=== PATIENT | female | born 1950 | race Caucasian/White ===

== ENCOUNTER 2018-05-10 09:33 | Outpatient (CLI) | payer MEDICARE, BC ==
--- NOTE | 2018-05-10 10:41 | ULT ---
RENAL SONOGRAM: HISTORY: Chronic renal insufficiency. COMPARISON: None. FINDINGS: The right kidney is 8.1 cm. Exophytic cyst projecting from the superior pole is 8.9 cm in greatest d iameter. No solid mass or hydronephrosis. The urinary bladder is unremarkable. The left kidney is 9.7 cm. There is mild distention of the calyces and renal pelvis. IMPRESSION: 1. Mild left pelvocaliectasis. Clinical correlation regarding other signs and symptoms of left elmer l colic is required. Age indeterminate. 2. Large right renal cyst. POS: BST
== END 2018-05-10 09:34 | disposition home or self-care (01) ==
LOC: ULT 09:33
PROVIDERS: ATTEND Internal Medicine Nephrology
DX: N18.3 Chronic kidney disease, stage 3 (moderate) (principal); N28.1 Cyst of kidney, acquired; N28.89 Other specified disorders of kidney and ureter
CPT/HCPCS: 76770

== ENCOUNTER 2018-10-12 09:58 | Emergency (ER) | payer MEDICARE, BC ==
[2018-10-12] MEDS ORDERED: Ondansetron PF 4 MG/2 ML Vial ONE (10:20)
[2018-10-12] MEDS ORDERED: Morphine 4 MG/ML VIAL ONE (10:20)
[2018-10-12 10:53] LABS: ALT (SGPT) 8 U/L (8-55); AST (SGOT) 14 U/L (5-34); Albumin 3.7 g/dL (3.4-4.8); Alkaline Phosphatase 95 U/L (40-150); Anion Gap 16 mmol/L (10-20); BUN (Urea Nitrogen) 32 mg/dL (9.8-20.1); Bilirubin, Total 0.3 mg/dL (0.2-1.2); Calc. Creatinine Clearance 0 mL/min (70-130); Calcium 9.4 mg/dL (7.8-10.44); Carbon Dioxide 23 mmol/L (23-31); Chloride 103 mmol/L (98-107); Estimated GFR-MDRD 29; Globulin 2.7 g/dL (2.4-3.5); Glucose 119 mg/dL (80-115); Lipase 8 U/L (8-78); Potassium 4.3 mmol/L (3.5-5.1); Protein, Total 6.4 g/dL (6.0-8.3); Sodium 138 mmol/L (136-145)
[2018-10-12 11:07] LABS: Band 2 % (5-11); Hemoglobin 9.4 g/dL (12.0-16.0); Lymphocytes 14 % (21-51); MDiff Complete? YES; Macrocytosis SLIGHT = 6-15 cells (100X) (0-5/hpf); Mean Corpuscular HGB CONC 31.8 g/dL (32.0-36.0); Mean Corpuscular Hemoglobin 31.1 pg (27.0-31.0); Mean Corpuscular Volume 97.8 fL (78.0-98.0); Mean Platelet Volume 7.1 fL (7.4-10.4); Monocytes 16 % (0-10); Neutrophil 67 % (42-75); PLT Morphology Comment Appears Adequate; Platelet Count 304 thou/uL (130-400); RBC Distribution Width 13.4 % (11.5-14.5); Reactive Lymphocytes 1 % (0-10); Red Blood Cell (RBC) Count 3.04 mill/uL (4.20-5.40); White Blood Cell (WBC) Count 4.2 thou/uL (4.8-10.8)
[2018-10-12 11:56] LABS: Bilirubin Negative (Negative); Blood, Urine Large (Negative); Clarity Slightly Cloudy (Clear); Glucose, Urine (Dipstick) Negative (Negative); Leukocyte Large (Negative); Nitrite Negative (Negative); Protein, Urine (Dipstick) > or equal to 300 mg/dL (Neg-Trace); Urobilinogen 0.2 mg/dL (0.2-1.0); pH, Urine 6.5 (5.0-9.0)
[2018-10-12 12:00] LABS: Bacteria/HPF 4+ HPF (None Seen); RBC/HPF GREATER THAN 50-TNTC HPF (0-3); Squamous Epithelial 0-3 HPF (0-3)
--- NOTE | 2018-10-12 12:28 | CT ---
CT OF THE ABDOMEN AND PELVIS WITHOUT IV CONTRAST: INDICATION: History of ovarian cancer with bilateral renal collecting system obstruction status post ureteral tariq nt placement in June of 2018. The stents were replaced 1 week ago. The patient was reportedly doi ng well following the replacement of the stents with moderate discomfort until last night when the pa tient awoke with sudden increase in pain in the right flank. The patient has had nausea and vomiting for 10 episodes. The patient denies fever, urinary symptoms, diarrhea, or any other complaints. COMPARISON: Renal ultrasound dated 05/10/2018. No CT comparisons are available. FINDINGS: There are large hypodense lesions involving the liver suspicious for cysts. There is a lesion in the left hepatic lobe laterally measuring 2.7 cm on image 15 of series 2. The lesion within the medial left hepatic lobe on image 18 of series 2 measures 6.1 cm. The largest within segment 6 of the right hepatic lobe is seen measuring 9.5 x 8.0 cm on image 29 of series 2. These are suspicious for large cysts. There are isodense masses overlying the right hepatic lobe within the capsule best seen on coronal im age 65 measuring 2.8 cm. There are numerous scattered areas of nodularity involving the omental skir t, paracolonic gutters, sigmoid mesentery, and lower pelvis consistent with changes of carcinomatosis . There is a 1.8 cm adenoma involving the left adrenal gland. T here is slight hypertrophy of the right adrenal gland without focal nodule. Unopacified pancreas and spleen are unremarkable. There is mil d scattered free fluid within the abdomen. There are moderate calcifications involving the abdominal aorta. There are some edematous changes se en surrounding the second portion of the duodenum with some fluid seen within the anterior pararenal space. There are bilateral ureteral stents that are projecting in the expected positions. There is moderate to severe right and moderate left hydronephrosis. There is moderate fluid in the pelvis. There is scattered diverticula. There is postsurgical change of a partial small bowel resection at the anastomosis within the left lower quadrant of the abdomen. No free air is demonstrated. There is scattered degenerative and osteoarthritic change. No suspicious osteolytic or osteoblastic lesion is identified. There is a small calcified granuloma in the left lower lobe. There is a small hiatal hernia. IMPRESSION: 1. Moderate to severe right and moderate left hydronephrosis with ureteral stent placement. 2. Fluid and inflammatory change seen within the anterior pararenal space surrounding the pancreatic head and 2nd stage of the duodenum. Differential considerations for this finding which include poss ible edema related to perinephric edema from the patient's moderate to severe right hydronephrosis. This also can be seen in entities such as pancreatitis. A duodenitis from peptic ulcer disease could potentially cause this entity. Would recommend correlation with clinical examination and laboratory values. 3. Hepatic hypodensities suspicious for large cysts. 4. Scattered nodularity within the peritoneal cavity of the abdomen and pelvis consistent with carci nomatosis. 5. Small hiatal hernia. 6. Left adrenal adenoma. 7. Colonic diverticulosis. 8. Mild to moderate free fluid seen within the abdomen and pelvis. CODE T POS: DEIRDRE
== END 2018-10-12 17:29 | disposition short-term general hospital (02) ==
LOC: SCSER 09:58
DX: N13.30 Unspecified hydronephrosis (principal); D64.9 Anemia, unspecified; Z85.43 Personal history of malignant neoplasm of ovary; Z79.899 Other long term (current) drug therapy; Z96.0 Presence of urogenital implants
CPT/HCPCS: 74176; 80053; 81003; 81015; 83605; 83690; 85025; 87086; 96361; 96365; 96366; 96375; 96376; J1170; J1956; J2270; J2405

== ENCOUNTER 2019-05-16 15:10 | Emergency (ER) | payer MEDICARE, BC ==
[2019-05-16] MEDS ORDERED: Ondansetron PF 4 MG/2 ML Vial ONE (15:21)
[2019-05-16] MEDS ORDERED: Morphine 4 MG/ML VIAL ONE (15:21)
[2019-05-16 15:46] LABS: Hemoglobin 10.7 g/dL (12.0-16.0); Mean Corpuscular HGB CONC 32.9 g/dL (32.0-36.0); Mean Corpuscular Hemoglobin 34.3 pg (27.0-31.0); Mean Platelet Volume 7.3 fL (7.4-10.4); Platelet Count 129 thou/uL (130-400); RBC Distribution Width 12.2 % (11.5-14.5); Red Blood Cell (RBC) Count 3.13 mill/uL (4.20-5.40)
[2019-05-16] MEDS ORDERED: Fentanyl 100 MCG/2 ML VIAL ONE ×2 (15:47→18:01)
[2019-05-16] MEDS ORDERED: Ketorolac Tromethamine 30 MG/ML VIAL ONE (15:48)
[2019-05-16 15:57] LABS: #Eosinphils 0.1 thou/uL (0.0-0.7); #Monocytes 0.6 thou/uL (0.11-0.59); #Neutrophils 2.3 thou/uL (1.40-6.50); %Basophils 0.9 % (0.0-1.0); %Eosinophils 2.2 % (0.0-10.0); %Lymphocytes 25.2 % (21.0-51.0); %Monocytes 14.2 % (0.0-10.0); %Neutrophils 57.4 % (42.0-75.0); Hypochromia SLIGHT = 6-15 cells (100X) (0-5/hpf); MDiff Complete? YES; Macrocytosis SLIGHT = 6-15 cells (100X) (0-5/hpf); Platelet Morphology Comment Appears Decreased
[2019-05-16 16:14] LABS: ALT (SGPT) 17 U/L (8-55); AST (SGOT) 19 U/L (5-34); Albumin 3.5 g/dL (3.4-4.8); Alkaline Phosphatase 110 U/L (40-150); Anion Gap 15 mmol/L (10-20); BUN (Urea Nitrogen) 32 mg/dL (9.8-20.1); Bilirubin, Total 0.2 mg/dL (0.2-1.2); Calc. Creatinine Clearance 0 mL/min (70-130); Calcium 8.6 mg/dL (7.8-10.44); Carbon Dioxide 21 mmol/L (23-31); Chloride 109 mmol/L (98-107); Estimated GFR-MDRD 33; Globulin 2.2 g/dL (2.4-3.5); Glucose 109 mg/dL (80-115); Lipase 24 U/L (8-78); Potassium 4.4 mmol/L (3.5-5.1); Protein, Total 5.7 g/dL (6.0-8.3); Sodium 141 mmol/L (136-145)
--- NOTE | 2019-05-16 16:15 | CT ---
Exam: Abdomen CT without contrast Pelvic CT without contrast HISTORY: Ureteral stents. Abdominal pain. COMPARISON: None FINDINGS: Abdomen CT: Lung bases:Chronic changes. Heart size: Normal size. No significant pericardial fluid. Aorta: Normal caliber. Solid organs: Limited evaluation due to lack of IV contrast. Redemonstration of multiple hepatic cyst s. Largest cyst is in the right hepatic lobe measuring 7.6 x 8.4 cm. Interval development of a irregular hypodense mass in the right hepatic lobe, incompletely evaluated measuring 2.3 x 3.4 cm. Sp staci, pancreas are grossly unremarkable. Stable asymmetric fullness of the left adrenal gland. Unremarkable right adrenal gland. Lymph nodes: No gastrohepatic, retrocrural or periportal lymphadenopathy Gallbladder: Unremarkable Mesentery: Small amount of fluid in the left and right paracolic gutter. No mesenteric mass, lymphade nopathy or free air. There is also evidence of stable stranding with possible fluid in the midline of the abdominal mesentery. Kidneys: Stable bilateral ureteral stents. There is persistent dilatation of the left and right intra renal collecting systems. The degree of dilatation of the right intrarenal collecting system is stable. There is been interval decompression of the left intrarenal collecting system. Alimentary canal: Limited evaluation due to technique. No evidence of bowel obstruction. Ileocecal ju nction is normal. Normal caliber appendix. Occasional diverticulum. No diverticulitis. Small bowel anastomosis without obstruction is noted. CT PELVIS: Trace amount free fluid in the pelvis. No mass, lymphadenopathy or free air. Hysterectomy changes. Urinary bladder: Unremarkable. Osseous structures: No lytic or blastic lesions IMPRESSION: 1. Stable positioning of bilateral ureteral stents. 2. Persistent dilatation of the right intrarenal collecting system. Interval decompression of the le ft intrarenal collecting system. 3. Interval development of a abnormal mass with hypodensity in the right hepatic lobe. Incomplete ch aracterization. Liver mass protocol CT is recommended. 4. CODE T Transcribed Date/Time: 05/16/2019 4:38 PM
[2019-05-16 16:58] LABS: Bilirubin Negative (Negative); Blood, Urine Moderate (Negative); Glucose, Urine (Dipstick) Negative (Negative); Leukocyte Small (Negative); Nitrite Negative (Negative); Protein, Urine (Dipstick) > or equal to 300 mg/dL (Neg-Trace); Specific Gravity, Urine 1.025 (1.005-1.030); Urobilinogen 0.2 mg/dL (0.2-1.0)
[2019-05-16 16:59] LABS: Clarity Hazy (Clear)
[2019-05-16 17:05] LABS: Bacteria/HPF 1+ HPF (None Seen); Hyaline Casts/LPF 0-3 HYALINE CAST LPF (0-3 Hyaline); RBC/HPF 0-3 HPF (0-3)
== END 2019-05-16 18:55 | disposition home or self-care (01) ==
LOC: SCSER 15:10
DX: T83.113A Breakdown (mechanical) of other urinary stents, initial encounter (principal); R10.9 Unspecified abdominal pain; M54.9 Dorsalgia, unspecified; I10 Essential (primary) hypertension; Z79.899 Other long term (current) drug therapy
CPT/HCPCS: 74176; 80053; 81003; 81015; 83690; 85025; 96361; 96374; 96375; 96376; J1885; J2270; J2405; J3010

== ENCOUNTER 2019-05-23 06:49 | Emergency (ER) | payer MEDICARE, BC ==
[2019-05-23] MEDS ORDERED: Ondansetron PF 4 MG/2 ML Vial ONE (07:13)
[2019-05-23] MEDS ORDERED: Ketorolac Tromethamine 30 MG/ML VIAL ONE (07:13)
[2019-05-23] MEDS ORDERED: Fentanyl 100 MCG/2 ML VIAL ONE (07:13)
[2019-05-23 07:53] LABS: ALT (SGPT) 21 U/L (8-55); AST (SGOT) 25 U/L (5-34); Albumin 3.8 g/dL (3.4-4.8); Alkaline Phosphatase 129 U/L (40-150); Anion Gap 16 mmol/L (10-20); BUN (Urea Nitrogen) 26 mg/dL (9.8-20.1); Bilirubin, Total 0.3 mg/dL (0.2-1.2); Calc. Creatinine Clearance 0 mL/min (70-130); Calcium 8.6 mg/dL (7.8-10.44); Carbon Dioxide 20 mmol/L (23-31); Chloride 104 mmol/L (98-107); Estimated GFR-MDRD 44; Globulin 2.1 g/dL (2.4-3.5); Glucose 110 mg/dL (80-115); Potassium 4.3 mmol/L (3.5-5.1); Protein, Total 5.9 g/dL (6.0-8.3); Sodium 136 mmol/L (136-145)
[2019-05-23 07:56] LABS: Hemoglobin 11.2 g/dL (12.0-16.0); Mean Corpuscular Hemoglobin 35.7 pg (27.0-31.0); Mean Platelet Volume 9.2 fL (7.4-10.4); Platelet Count 164 thou/uL (130-400); RBC Distribution Width 12.1 % (11.5-14.5); Red Blood Cell (RBC) Count 3.15 mill/uL (4.20-5.40); White Blood Cell (WBC) Count 5.2 thou/uL (4.8-10.8)
--- NOTE | 2019-05-23 07:57 | CT ---
CT Stone Protocol: 05/23/2019 7:27 AM HISTORY: Abdominal pain COMPARISON: 05/16/2019, 10/12/2018 Procedure: Multiple contiguous axial images were obtained and a CT of the abdomen and pelvis without IV contrast . Coronal reformats were performed. FINDINGS: This examination is limited for the evaluation of solid organs and vascular structures due to the lac k of intravenous contrast. Lower Chest: within normal limits. Abdomen: Liver: Stable cysts measuring up to 8.8 cm in size. There is a stable hypodensity near the dome of th e liver in the right lobe measuring 3.4 cm in greatest dimension. This does not meet criteria for a simple cyst. Bile Ducts: Normal caliber. Gallbladder: No calcified gallstones. Normal caliber wall. Pancreas: within normal limits. Spleen: within normal limits. Adrenals: Stable nonmasslike hyperplasia Kidneys: Stable prominence of the right renal pelvis without significant calyceal dilatation. Pelvis: Reproductive Organs: No pelvic masses. Ureters: Bilateral ureteral stents appear in good position. There is stable prominence of the right r enal pelvis without significant calyceal dilatation. Bladder: No focal abnormality. Bowel: Normal caliber. Mesenteric Lymph Nodes: No enlarged mesenteric lymph nodes. Peritoneum: No ascites or free air, no fluid collection. Vessels: Atherosclerotic calcifications in the aorta Retroperitoneum: within normal limits. Abdominal Wall: within normal limits. Bones: Degenerative changes in the spine. IMPRESSION: 1. Stable ureteral stent placement with prominence of the right renal pelvis. 2. Nonspecific hypodensity in the right lobe of the liver is concerning for either an abscess or a me tastatic lesion. A CT per liver mass protocol or MRI per liver mass protocol are recommended. 3. Hepatic cysts 4. Adrenal hyperplasia
[2019-05-23 08:12] LABS: Bilirubin Negative (Negative); Blood, Urine Small (Negative); Clarity Clear (Clear); Glucose, Urine (Dipstick) Negative (Negative); Leukocyte Trace (Negative); Nitrite Negative (Negative); Protein, Urine (Dipstick) > or equal to 300 mg/dL (Neg-Trace); Specific Gravity, Urine 1.025 (1.005-1.030); Urobilinogen 0.2 mg/dL (0.2-1.0); pH, Urine 5.5 (5.0-9.0)
[2019-05-23 08:18] LABS: Band 2 % (5-11); Lymphocytes 2 % (21-51); MDiff Complete? YES; Macrocytosis SLIGHT = 6-15 cells (100X) (0-5/hpf); Monocytes 10 % (0-10); Neutrophil 86 % (42-75); Platelet Morphology Comment Appears Adequate
[2019-05-23 08:31] LABS: Bacteria/HPF None Seen HPF (None Seen); Hyaline Casts/LPF NONE SEEN LPF (0-3 Hyaline); RBC/HPF 0-3 HPF (0-3); Squamous Epithelial 0-3 HPF (0-3); WBC/HPF 0-3 HPF (0-3)
== END 2019-05-23 08:55 | disposition home or self-care (01) ==
LOC: SCSER 06:49
DX: T83.112A Breakdown (mechanical) of indwelling ureteral stent, initial encounter (principal); M54.9 Dorsalgia, unspecified; I10 Essential (primary) hypertension; Z79.899 Other long term (current) drug therapy
CPT/HCPCS: 74176; 80053; 81003; 81015; 85025; 96361; 96374; 96375; J1885; J2405; J3010